=== PATIENT | female | born 1980 | race Caucasian/White ===

== ENCOUNTER 2020-07-09 14:32 | Emergency (ER) | payer OTHER, SELFPAY ==
--- NOTE | 2020-07-09 14:39 | HMH.EDGENADL ---
ED Disposition Clinical Impression: Vaginal bleeding, Dysfunctional uterine bleeding, Uterine mass Disposition: Home, Self-Care Condition on Discharge: Fair Additional Instructions: Take control medication as prescribed to decrease bleeding. He will take 2 pills/day for the next 3 days then take them 1 pill a day until they are finished. You can follow-up with Dr. Mackenzie. If you have any new, changing, worsening, or concerning symptoms, come back to the emergency department. Prescriptions: norgestimate-ethinyl estradioL [Sprintec 28 Day Tablet] 1 each PO DAILY 28 Days #28 tab Prescription Printed Referrals: Dawood Ames MD [Primary Care Provider] - Jai Martinez MD [Staff Physician] - Time of Disposition: 19:18 - Critical Care Critical Care Time: No Attestation: On , the high probability of a clinically significant, sudden or life threatening deterioration of the following system(s) required my full and direct attention, intervention and personal management. The time I documented below is in addition to time spent performing reported procedures but includes the following listed in this critical care notation. Medical Decision Making - Medical Records Medical records reviewed: Yes: I reviewed the patient's medical records. MR Comment: 39-year-old female presents the emergency department with heavy vaginal bleeding since around noon today. She is hemodynamically stable, with reassuring vital signs, and overall looks well on exam. She does not appear infected. Given her history will get labs including , CT and reassess. CT of the abdomen pelvis shows a large mass in the uterus with what is likely blood, could be fibroid/neoplasm. Ultrasound obtained which also shows some free fluid and cysts around her left ovary. Given this and her anemia with hemoglobin 9.6, spoke with Dr. Mackenzie so that we can arrange quicker follow-up for her. Her bleeding is slowed down a lot since arrival here, and she is soaking through less than 1 pad an hour. We will place her on control and she will follow-up for further evaluation. She was also given strict return precautions. She verbalized understanding of this and agreed to the plan. Safe to discharge. - Rito Inquiry Pt receiving controlled substance: No Vital Signs: 07/09/20 14:50 07/09/20 15:24 07/09/20 16:49 Temperature 98.2 F Temperature Source Oral Pulse Rate [Right Radial] 85 100 H 85 Respiratory Rate 17 15 20 Blood Pressure [Right Arm] 128/76 120/42 L 105/45 L Blood Pressure Mean [Right Arm] 93 68 65 Blood Pressure Source [Right Arm] Automatic Cuff Blood Pressure Position [Right Arm] Sitting 02 Sat by Pulse Oximetry 100 99 100 Oxygen Delivery Method Room Air - Lab Data Lab Results 07/09/20 15:00: WBC 10.7, RBC 3.23 L, Hgb 9.6 L, Hct 29.0 L, MCV 89.7, MCH 29.7, MCHC 33.1, RDW 14.3, Plt Count 500 H, MPV 8.0, Neut % (Auto) 62.9, Lymph % (Auto) 30.5, [place] % (Auto) 5.4, Eos % (Auto) 0.6, Baso % (Auto) 0.6, Neut # (Auto) 6.8, Lymph # (Auto) 3.3, [place] # (Auto) 0.6, Eos # (Auto) 0.1, Baso # (Auto) 0.1 07/09/20 15:00: Sodium 137, Potassium 3.5, Chloride 104, Carbon Dioxide 26, Anion Gap 10.5, BUN 9, Creatinine 0.70, Estimated Creat Clear 125, Estimated GFR 92, Est GFR ( Amer) 112, Glucose 201 H, Calcium 9.4, Total Bilirubin 0.3, AST 36, ALT 30, Alkaline Phosphatase 90, Total Protein 7.1, Albumin 4.3, Globulin 2.8, Albumin/Globulin Ratio 1.5, HCG, Quant < 2 07/09/20 15:00: Lactate 1.9 07/09/20 15:00: Blood Type O Negative, Antibody Screen Negative 07/09/20 15:21: POC Glucose 197 H 07/09/20 16:10: Urine Color [place], Urine Appearance Cloudy, Urine pH 6.0, Ur Specific [place] 1.020, Urine Protein Trace, Urine Glucose (UA) Negative, Urine Ketones Trace, Urine Blood 3+, Urine Nitrate Negative, Urine Bilirubin Negative, Urine Urobilinogen 0.2, Ur Leukocyte Esterase Negative, Urine RBC 20-50, Urine WBC 5-10, Ur Squamous Epith Cells 3-5, Urine Bacteri
[2020-07-09 14:50] VITALS: BP 128/76; PULSE 85; RESP 17; TEMP 36.8; O2SAT 100; BMI 32.2
--- NOTE | 2020-07-09 14:53 | CT_ITS ---
PROCEDURE: CT ABDOMEN PELVIS W CON CLINICAL INDICATION: vaginal bleeding and pain Abdominal pain with heavy vaginal bleeding COMPARISON: US US TRANSVAGINAL from 07/09/2020 TECHNIQUE: IV Contrast: 75ML OPTIRAY 350 Oral Contrast None Axial images obtained with sagittal and coronal reformats. All CT scans at the facility use one or more dose reduction, viz: automated exposure control, ma/kV adjustment per patient size (including targeted exams where dose is matched to indication, i.e. head), or iterative reconstruction technique. FINDINGS: LOWER THORAX: Minimal atelectatic or fibrotic changes are present in the right middle lobe ABDOMEN & PELVIS: The liver, spleen, adrenal glands, pancreas have an unremarkable appearance. There is a 4 mm nonobstructing stone in the mid polar region of the right kidney. See there is a 1 cm left renal cyst. No ureteral calculi or hydronephrosis. Unremarkable appendix. No intestinal obstruction or free air. There is a trace amount of free fluid in the pelvis. The uterus is retroverted and enlarged with heterogeneous attenuation. There is a 4 by 3.8 cm area of heterogeneous attenuation within the central aspect of the uterus inferiorly which appears to be eccentric to the left superiorly indenting the endometrial cavity toward the right.. This could represent a fibroid or endometrial carcinoma. Heterogeneous density in the endometrial canal and cervix area possibly due to blood. There is a small amount of fluid in the cul-de-sac. No acute bony findings. There is mild lumbar scoliosis convex left. IMPRESSION: 4 x 3.8 cm heterogeneous uterine mass deforming the endometrial canal and could represent a uterine leiomyoma or other neoplasm.. Heterogeneous attenuation noted in the endometrial canal and cervix area and could be due to blood Right nephrolithiasis Dictated by: Jonathan Villa MD 07/09/2020 20:47 Jonathan Villa MD in [facility] 07/09/2020 20:47
--- NOTE | 2020-07-09 15:15 | INFXCTL.NOTE ---
lab at bedside drawing blood for type and screen and patient became unresponsive suddenly during draw. nurse and emt-p enter room and with some stimulation and trendelenburg position patient arouses. ns bolus initiated. pt becomes alert with stable vs and is conversing appropriately. dr lambert at bedside for eval.
[2020-07-09 15:20] LABS: Basophils # 0.1 K/mm3 (0-0.2); Basophils % 0.6 % (0.1-2.0); Eosinophils # 0.1 K/mm3 (0.0-0.4); Eosinophils % 0.6 % (0.1-12.0); Hemoglobin 9.6 g/dL (12.2-16.2); Lymphocytes # 3.3 K/mm3 (0.7-4.5); Lymphocytes % 30.5 % (10-50); Mean Corpuscular HGB Conc 33.1 g/dL (31.8-35.4); Mean Corpuscular Hemoglobin 29.7 pg (27.0-31.2); Mean Corpuscular Volume 89.7 fl (81-99); Monocytes # 0.6 K/mm3 (0.1-1.0); Monocytes % 5.4 % (1.7-9.3); Neutrophils # 6.8 K/mm3 (1.8-7.8); Neutrophils % 62.9 % (37.0-80.0); Platelet Count 500 K/mm3 (142-424); Red Blood Count 3.23 M/mm3 (4.20-5.40); Red Cell Distribution Width 14.3 % (11.5-17.5); White Blood Count 10.7 K/mm3 (4.8-10.8)
[2020-07-09 15:24] VITALS: BP 120/42; PULSE 100; RESP 15; O2SAT 99
[2020-07-09 15:28] LABS: Lactic Acid 1.9 mmol/L (0.7-2.1)
[2020-07-09 15:29] LABS: POC Glucose,Bedside 197 (70-110)
[2020-07-09 15:30] LABS: Alanine Aminotransferase 30 U/L (12-78); Albumin Level 4.3 g/dl (3.5-5.0); Albumin/Globulin Ratio 1.5 (1.1-1.8); Alkaline Phosphatase 90 U/L (38-126); Anion Gap 10.5 mEq/L (5-15); Aspartate Amino Transferase 36 U/L (14-36); Bilirubin,Total 0.3 mg/dl (0.2-1.3); Blood Urea Nitrogen 9 mg/dl (7-17); Calcium 9.4 mg/dl (8.4-10.2); Carbon Dioxide 26 mmol/L (22.0-30.0); Chloride 104 mmol/L (98-107); Creatinine Clearance Estimated 125 mL/min (50-200); Estimated Glomerular Filt Rate 92 ml/min (>60); GFR (African American) 112 ML/MIN (>60); Globulin 2.8 g/dL (1.3-3.2); Glucose 201 mg/dl (74-100); Potassium 3.5 mmoL/L (3.5-5.1); Sodium 137 mmol/L (136-145); Total Protein,Serum 7.1 g/dl (6.3-8.2)
[2020-07-09 15:49] LABS: HCG,Quantitative < 2 mIU/ml (0-5.42)
[2020-07-09 16:40] LABS: Microscopic, Urine URINE MICROSCOPIC (MICROSCOPIC)
[2020-07-09 16:49] VITALS: BP 105/45; PULSE 85; RESP 20; O2SAT 100
[2020-07-09 17:07] LABS: Appearance,Urine CLOUDY (Clear); Bilirubin,Urine Negative (Negative); Blood, Urine 3+ (Negative); Color,Urine ORANGE (Yellow); Glucose,Urine (UA) Negative (Negative); Ketones,Urine TRACE (Negative); Leukocyte Esterase,Urine Negative (Negative); Nitrate,Urine Negative (Negative); Protein,Urine TRACE (Negative); Urobilinogen,Urine 0.2 EU/dl (0.2)
[2020-07-09 17:23] LABS: Bacteria,Urine Trace /lpf; Fine Granular Casts,Urine Occasional #/lpf (0); RBC,Urine 20-50 #/hpf (0-3)
--- NOTE | 2020-07-09 17:40 | US_ITS ---
PROCEDURE: US TRANSVAGINAL CLINICAL INDICATION: severe vaginal bleeding, mass in uterus on CT COMPARISON: CT CT ABDOMEN PELVIS W CON from 07/09/2020 FINDINGS: Uterus measures 8 x 5 x 5 cm. The uterus is retroverted. There is a heterogeneous mass in the region of the fundus of the uterus measuring 4 x 3.6 cm and could represent a fibroid or neoplasm. The endometrium is displaced dorsally measuring 9 mm. Left ovary is 3 x 3.5 cm containing 2 small follicles with blood flow noted. The right ovary is 1.7 x 1.3 cm with blood flow present. Fluid is present in the cul-de-sac. The fluid shows some increase in echogenicity on the images submitted and could represent underlying debris or blood. IMPRESSION: Heterogeneous uterine mass which could represent fibroid or uterine carcinoma. Fluid is present in the cul-de-sac with some increase in echogenicity possibly due to blood or debris Dictated by: Jonathan Villa MD 07/09/2020 20:56 Jonathan Villa MD in [facility] 07/09/2020 20:56
--- NOTE | 2020-07-09 17:42 | PC.NURSE ---
radiology notified of need for neon glass blower interventional tech. pt and updated on plan of care and both deny questions or needs. awaiting tech arrival.
[2020-07-09 19:38] VITALS: BP 110/60; PULSE 70; RESP 16; TEMP 36.8; O2SAT 98
== END 2020-07-09 19:39 | disposition home or self-care (01) ==
PROVIDERS: Emergency Provider Emergency Medicine; PCP Family Medicine
DX: N93.8 Other specified abnormal uterine and vaginal bleeding (principal); N85.8 Other specified noninflammatory disorders of uterus
CPT/HCPCS: 74177; 76830; 80053; 81001; 82962; 83605; 84702; 85025; 86850; 96365; 96366; 99284; Q9967

== ENCOUNTER → 2020-07-18 10:45 | Outpatient (CLI) | payer OTHER, SELFPAY ==
--- NOTE | 2020-07-18 10:45 | MM_ITS ---
PROCEDURE: MM DIG SCREENING MAMM BI W/CAD Digital Breast Tomosynthesis Included CLINICAL INDICATION: Baseline xmg There is no personal or family history of breast cancer. The patient is on control pills. COMPARISON: This is a baseline screening exam, patient without complaints TECHNIQUE: Standard CC and MLO images and 3D Tomosynthesis was obtained. R2 CAD reviewed. FINDINGS: Prominent diffuse somewhat heterogenic fibroglandular densities are seen throughout both breasts. Landon images are most helpful in this type of dense breast parenchyma. The findings of bilateral and symmetrical. There is no suspicious lesion in either breast and no suspicious microcalcifications. IMPRESSION: Moderately and diffusely dense parenchymal pattern with no suspicious lesions seen BI-RAD Category: 1 Negative FOLLOW-UP: 1YR 1 Year Follow-up (A letter has been sent to the patient regarding results of the study.) Dictated by: Dr. Bharat Copeland MD 07/20/2020 11:00 Dr. Bharat Copeland MD in [facility] 07/20/2020 11:00
== END ==
PROVIDERS: PCP Family Medicine; Visit Provider Nurse Practitioner Obstetrics & Gynecology
DX: Z12.31 Encounter for screening mammogram for malignant neoplasm of breast (principal)
CPT/HCPCS: 77063; 77067

== ENCOUNTER 2020-11-19 06:18 | Emergency (ER) | payer OTHER, SELFPAY ==
[2020-11-19] VITALS (9 sets, daily range): BP systolic 122–159; BP diastolic 64–96; PULSE 91–137; RESP 16–18; TEMP 36.6; O2SAT 100; BMI 32.5
[2020-11-19 06:54] LABS: Microscopic, Urine URINE MICROSCOPIC (MICROSCOPIC)
--- NOTE | 2020-11-19 06:58 | ECG_ITS ---
APPROVED REPORT Exam: Resting ECG HR:87 bpm ECG Measurements Heart Rate 87 AXES LA 118 P 67 QRSd 70 QRS 61 QT 366 T 33 QTc 440 Conclusion Normal sinus rhythm Normal ECG Electronically signed by : Dawood Law, 11/21/2020 06:56:48
[2020-11-19 06:59] LABS: Appearance,Urine CLOUDY (Clear); Blood, Urine 3+ (Negative); Color,Urine DK YELLOW (Yellow); Glucose,Urine (UA) Negative (Negative); Ketones,Urine 2+ (Negative); Leukocyte Esterase,Urine Negative (Negative); Nitrate,Urine Negative (Negative); Protein,Urine 1+ (Negative); Specific Gravity, Urine >= 1.030 (1.005-1.030); Urobilinogen,Urine 0.2 EU/dl (0.2)
[2020-11-19 07:10] LABS: Urine Pregnancy, HCG Qual. Negative (Negative)
[2020-11-19 07:11] LABS: Chloride 107 mmol/L (98-107); Sodium 138 mmol/L (136-145)
[2020-11-19 07:12] LABS: Potassium 4.4 mmoL/L (3.5-5.1)
[2020-11-19 07:14] LABS: Alanine Aminotransferase 40 U/L (12-78); Albumin Level 4.5 g/dl (3.5-5.0); Albumin/Globulin Ratio 1.3 (1.1-1.8); Alkaline Phosphatase 61 U/L (38-126); Anion Gap 13.4 mEq/L (5-15); Aspartate Amino Transferase 52 U/L (14-36); Bilirubin,Total 0.6 mg/dl (0.2-1.3); Blood Urea Nitrogen 15 mg/dl (7-17); Calcium 9.1 mg/dl (8.4-10.2); Carbon Dioxide 22 mmol/L (22.0-30.0); Creatinine Clearance Estimated 125 mL/min (50-200); Estimated Glomerular Filt Rate 92 ml/min (>60); GFR (African American) 111 ML/MIN (>60); Globulin 3.5 g/dL (1.3-3.2); Glucose 162 mg/dl (74-100)
[2020-11-19 07:15] LABS: Bilirubin,Urine Negative (Negative)
--- NOTE | 2020-11-19 07:15 | PC.NURSE ---
Pt to rad.
[2020-11-19 07:20] LABS: C-Reactive Protein 19.6 mg/L (0-4)
--- NOTE | 2020-11-19 07:27 | HMH.EDUROGF ---
ED Disposition Clinical Impression: Dysfunctional uterine bleeding Disposition: Home, Self-Care Condition on Discharge: Good Instructions: DI for Vaginal Bleeding Additional Instructions: resume meds and follow up with hand almond blancher Referrals: Dawood Ames MD [Primary Care Provider] - Jai Martinez MD [Staff Physician] - - Critical Care Critical Care Time: No Attestation: On 11/19/20, the high probability of a clinically significant, sudden or life threatening deterioration of the following system(s) required my full and direct attention, intervention and personal management. The time I documented below is in addition to time spent performing reported procedures but includes the following listed in this critical care notation. Medical Decision Making - Medical Records Medical records reviewed: Yes: I reviewed the patient's medical records. - Rito Inquiry Pt receiving controlled substance: No Vital Signs: 11/19/20 06:20 11/19/20 07:03 11/19/20 07:04 Temperature 97.9 F Temperature Source Oral Pulse Rate [Right] 137 H Respiratory Rate 16 Blood Pressure [Orthostatic Lying Right Arm] 130/68 130/68 Blood Pressure [Orthostatic Sitting Right Arm] 134/81 Blood Pressure [Orthostatic Standing Right Arm] 157/75 H Blood Pressure [Right Arm] 159/96 H Blood Pressure Mean [Right Arm] 117 Blood Pressure Source [Right Arm] Blood Pressure Position [Right Arm] 02 Sat by Pulse Oximetry 100 Oxygen Delivery Method 11/19/20 07:05 11/19/20 07:46 11/19/20 08:16 Temperature Temperature Source Pulse Rate [Right] 96 H 107 H 91 H Respiratory Rate 18 Blood Pressure [Orthostatic Lying Right Arm] Blood Pressure [Orthostatic Sitting Right Arm] Blood Pressure [Orthostatic Standing Right Arm] Blood Pressure [Right Arm] 157/75 H 128/79 123/64 Blood Pressure Mean [Right Arm] 102 95 83 Blood Pressure Source [Right Arm] Automatic Cuff Automatic Cuff Automatic Cuff Blood Pressure Position [Right Arm] Sitting Sitting Sitting 02 Sat by Pulse Oximetry 100 100 100 Oxygen Delivery Method Room Air Room Air Room Air 11/19/20 08:58 Temperature Temperature Source Pulse Rate [Right] 96 H Respiratory Rate Blood Pressure [Orthostatic Lying Right Arm] Blood Pressure [Orthostatic Sitting Right Arm] Blood Pressure [Orthostatic Standing Right Arm] Blood Pressure [Right Arm] 127/69 Blood Pressure Mean [Right Arm] 88 Blood Pressure Source [Right Arm] Automatic Cuff Blood Pressure Position [Right Arm] Sitting 02 Sat by Pulse Oximetry 100 Oxygen Delivery Method Room Air - Lab Data Lab results reviewed: Yes: I reviewed the patient's lab results. Lab Results 11/19/20 06:30: Urine Color Dk yellow, Urine Appearance Cloudy, Urine pH 6.0, Ur Specific [place] >= 1.030, Urine Protein 1+, Urine Glucose (UA) Negative, Urine Ketones 2+, Urine Blood 3+, Urine Nitrate Negative, Urine Bilirubin Negative, Urine Urobilinogen 0.2, Ur Leukocyte Esterase Negative, Urine RBC 10-20, Urine WBC 5-10, Ur Squamous Epith Cells Occasional, Urine Bacteria Trace 11/19/20 06:45: WBC 14.7 H, RBC 4.28, Hgb 11.3 L, Hct 35.2 L, MCV 82.3, MCH 26.4 L, MCHC 32.1, RDW 15.8, Plt Count 448 H, MPV 8.5, Neut % (Auto) 78.7, Lymph % (Auto) 15.9, [place] % (Auto) 4.6, Eos % (Auto) 0.3, Baso % (Auto) 0.6, Neut # (Auto) 11.6 H, Lymph # (Auto) 2.3, [place] # (Auto) 0.7, Eos # (Auto) 0.0, Baso # (Auto) 0.1, ESR 24 H 11/19/20 06:45: Urine HCG, Qual Negative 11/19/20 06:45: C-Reactive Protein 19.6 H, Procalcitonin < 0.030 11/19/20 06:45: Sodium 138, Potassium 4.4, Chloride 107, Carbon Dioxide 22, Anion Gap 13.4, BUN 15, Creatinine 0.70, Estimated Creat Clear 125, Estimated GFR 92, Est GFR ( Amer) 111, Glucose 162 H, Calcium 9.1, Total Bilirubin 0.6, AST 52 H, ALT 40, Alkaline Phosphatase 61, Troponin I < 0.01, Total Protein 8.0, Albumin 4.5, Globulin 3.5 H, Albumin/Globulin Ratio 1.3 Result diagrams: 11/19/20 06:45 11/19/20 06:45 Orders (Tests/Meds
[2020-11-19 07:31] LABS: Troponin I < 0.01 ng/ml (0.00-0.034)
[2020-11-19 07:32] LABS: Bacteria,Urine Trace /lpf; Squamous Epithelial Cell,Urine Occasional #/hpf (0-5)
[2020-11-19 07:34] LABS: Basophils # 0.1 K/mm3 (0-0.2); Basophils % 0.6 % (0.1-2.0); Eosinophils % 0.3 % (0.1-12.0); Hematocrit 35.2 % (37.0-47.0); Hemoglobin 11.3 g/dL (12.2-16.2); Lymphocytes # 2.3 K/mm3 (0.7-4.5); Lymphocytes % 15.9 % (10-50); Mean Corpuscular HGB Conc 32.1 g/dL (31.8-35.4); Mean Corpuscular Hemoglobin 26.4 pg (27.0-31.2); Mean Corpuscular Volume 82.3 fl (81-99); Mean Platelet Volume 8.5 fl (7.4-10.4); Monocytes # 0.7 K/mm3 (0.1-1.0); Monocytes % 4.6 % (1.7-9.3); Neutrophils # 11.6 K/mm3 (1.8-7.8); Neutrophils % 78.7 % (37.0-80.0); Platelet Count 448 K/mm3 (142-424); Red Blood Count 4.28 M/mm3 (4.20-5.40); Red Cell Distribution Width 15.8 % (11.5-17.5); White Blood Count 14.7 K/mm3 (4.8-10.8)
--- NOTE | 2020-11-19 07:36 | PC.NURSE ---
minilab operator paging nurse quality engagement liaison (Dr. Olvera)
--- NOTE | 2020-11-19 07:39 | PC.NURSE ---
SALO NUNEZ speaking with Dr. Olvera
[2020-11-19 08:04] LABS: Erythrocyte Sedimentation Rate 24 mm/hr (0-20)
[2020-11-19 08:23] LABS: Procalcitonin < 0.030 ng/mL (0.0-2.0)
== END 2020-11-19 09:55 | disposition home or self-care (01) ==
PROVIDERS: Emergency Provider Emergency Medicine; PCP Family Medicine
DX: N93.8 Other specified abnormal uterine and vaginal bleeding (principal)
CPT/HCPCS: 80053; 81001; 81025; 84145; 84484; 85025; 85651; 86140; 93005; 96365; 99284

== ENCOUNTER → 2020-12-06 10:59 | Outpatient (CLI) | payer OTHER, SELFPAY ==
[2020-12-06 11:40] LABS: Basophils % 0.5 % (0.1-2.0); Eosinophils # 0.1 K/mm3 (0.0-0.4); Eosinophils % 0.6 % (0.1-12.0); Hematocrit 35.4 % (37.0-47.0); Hemoglobin 10.8 g/dL (12.2-16.2); Lymphocytes # 1.6 K/mm3 (0.7-4.5); Lymphocytes % 18.8 % (10-50); Mean Corpuscular HGB Conc 30.5 g/dL (31.8-35.4); Mean Corpuscular Hemoglobin 26.6 pg (27.0-31.2); Mean Corpuscular Volume 87.1 fl (81-99); Mean Platelet Volume 7.9 fl (7.4-10.4); Monocytes # 0.4 K/mm3 (0.1-1.0); Monocytes % 4.4 % (1.7-9.3); Neutrophils # 6.4 K/mm3 (1.8-7.8); Neutrophils % 75.7 % (37.0-80.0); Platelet Count 512 K/mm3 (142-424); Red Blood Count 4.06 M/mm3 (4.20-5.40); Red Cell Distribution Width 17.6 % (11.5-17.5); White Blood Count 8.5 K/mm3 (4.8-10.8)
[2020-12-06 12:05] LABS: Chloride 109 mmol/L (98-107); Potassium 4.6 mmoL/L (3.5-5.1); Sodium 141 mmol/L (136-145)
[2020-12-06 12:08] LABS: Anion Gap 13.6 mEq/L (5-15); Blood Urea Nitrogen 10 mg/dl (7-17); Calcium 9.6 mg/dl (8.4-10.2); Carbon Dioxide 23 mmol/L (22.0-30.0); Estimated Glomerular Filt Rate 92 ml/min (>60); GFR (African American) 111 ML/MIN (>60); Glucose 114 mg/dl (74-100); HCG Qualitative, Serum Negative (Negative)
== END ==
PROVIDERS: PCP Family Medicine; Visit Provider Nurse Practitioner Obstetrics & Gynecology
DX: Z01.818 Encounter for other preprocedural examination (principal); Z20.822 Contact with and (suspected) exposure to COVID-19; R10.2 Pelvic and perineal pain; D25.9 Leiomyoma of uterus, unspecified; N92.0 Excessive and frequent menstruation with regular cycle
CPT/HCPCS: 36415; 80048; 84703; 85025; U0003

== ENCOUNTER 2020-12-08 06:17 | Observation (INO) | payer OTHER, SELFPAY ==
[2020-12-01 09:32] VITALS: BMI 32.2
[2020-12-08] VITALS (24 sets, daily range): BP systolic 98–142; BP diastolic 51–78; PULSE 52–103; RESP 14–18; TEMP 36.4–38; O2SAT 93–100; BMI 32.3
--- NOTE | 2020-12-08 06:55 | HMH.ANESCL ---
[facility] Anesthesia Checklist - Structural Data Admitted From: Home Planned Operative Procedure/s: [facility] Consent for Planned Operative Procedure(s) Verified: Yes - Additional verifications Anesthesia Reactions: No Hx Blood Transfusions: No Blood Transfusion Reaction: No - Airway Assessment C-Spine Mobility Assessed: Yes TMJ Mobility Assessed: Yes Dentition: Good Dentition - Neurological Assessment Level of Consciousness: Awake, Alert, Appropriate - Anesthesia Plan Anesthesia Risk discussed: Yes Anesthesia Plan: Verified ASA Class: II Anesthesia Type: General [facility] History I have reviewed the patient's past medical history: Yes Medical History: Denies:: Cancer, Diabetes Mellitus Type 1, Diabetes Mellitus Type 2, Internal Pacemaker, MRSA, Seizures *Have you ever received a pneumonia vaccine?: No *Have you received a flu vaccine this season?: No Other Medical History: Denies: Blood Transfusion Reaction Anesthesia experience/problems:: none Other Surgeries: Yes: No Previous Surgery. No: Pacemaker Amputation: No Fractures: No - *Social History Last grade of school completed: High school graduate Smoking Status: Never smoker Alcohol Intake: current Alcohol Intake Frequency:: holidays/special occasions only Substance Use Type: denies use *Occupational Status:: employed Housing: house Household Members: spouse, family *Travel in the last 8 weeks: None Family Hx:: No significant family history
--- NOTE | 2020-12-08 09:42 | P.PN_ITS ---
[facility] Anesthesia Record Part I Intake, IV Amount: 2,000 Estimated blood loss (mL): 200 Urine output (mL): 200 Blood Pressure: 126/61 SaO2: 93 Pulse Rate: 103 Respiratory Rate: 18 Temperature: 97.6 F Patient is:: Drowsy Stable to PACU at:: 09:43
--- NOTE | 2020-12-08 09:43 | HMH.OPNOTE ---
Date of procedure: 12/08/20 Pre-op Diagnosis:: Menorrhagia, fibroid uterus, anemia Post-op Diagnosis:: Menorrhagia, fibroid uterus, anemia Procedure performed:: Laparoscopically assisted vaginal hysterectomy, bilateral salpingectomy Surgeon:: Jai Martinez MD Military Source Operations Officer(s):: Yane Constantino SURVEYING TECHNICIAN:: Gurjit Yao Anesthesia: GETA Estimated blood loss (mL): 200 Clinical Note:: She is a 40-year-old lady who had extremely heavy periods. She has had low blood counts. Ultrasound showed that she had a 4 cm fibroid. After having discussed the risks and benefits we elected to perform a laparoscopic-assisted vaginal hysterectomy and bilateral salpingectomy. Operative findings:: She had a bulky retroverted uterus with a large intramural fibroid. Tubes appeared normal. The distal end of the left tube was adherent to the posterior uterus. There was an adhesion from the right ovary to the posterior uterus as well. The deep pelvis appeared normal the rest the abdomen appeared normal. Operative note:: She was taken to the operating room where general anesthesia was found be adequate. She was prepped and draped in normal sterile fashion in the semilithotomy position. A weighted speculum was placed in the vagina and the anterior lip of the cervix was grasped with a tenaculum. An acorn uterine manipulator was then placed within the cervical os. I then changed gloves. I injected 10 cc of 0.5% ropivacaine around the umbilicus and made a small incision within the umbilicus. I inserted a Veress needle into the abdominal cavity. The abdominal cavity was then insufflated with carbon dioxide gas to a pressure of 20 mmHg. I then inserted an 11 mm trocar under direct vision. I injected through and through the pubic hairline, made a small incision here and inserted a 5 mm trocar under direct vision. I identified the inferior epigastric arteries on the left side, went lateral to these and injected through and through. I then made a small incision and inserted an 11 mm trocar under direct vision. A similar 11 mm trocar was placed on the right side. The left round ligament was then grasped and cut through with harmonic scalpel. This was followed by opening up the peritoneum anteriorly to the midline. I then grasped the tube on the left side and cut through this. There was a thick adhesion from the distal end of the left tube to the posterior left side of the uterus. This was taken down with harmonic scalpel. This is followed by cutting through the left utero-ovarian ligament. I used Harmonic scalpel on the coagulation mode. I then took down the posterior aspect of the broad ligament to the level of the uterosacral ligament. I then skeletonized the uterine arteries on the left side and placed hemoclips on these. Using the harmonic scalpel on coagulation mode adjacent to the cervix I then took down these uterine arteries. I then further freed up the bladder anteriorly and laterally on the left side with harmonic scalpel. I then turned my attention to the right side where I grasped the right round ligament. I then used harmonic scalpel to cut through the right round ligament. I then took down the anterior peritoneum to the midline joining up with the other side. I further dissected the bladder off. The posterior aspect of the right broad ligament was then taken down with harmonic scalpel. I skeletonized the uterine arteries on the right side. I applied hemoclips to the uterine arteries and staying adjacent to the cervix on the right side I took down the uterine arteries with harmonic scalpel on coagulation mode. I further freed up the bladder. We then assured hemostasis. I then grasped the distal end of the right tube and using harmonic scalpel I cut along the mesosalpinx. The tube was removed through the 11 mm trocar site. This was only performed on the patient's left side. After once again assuring hemostasis we then turned our attention to the
[2020-12-08 09:51] LABS: Microscopic,Cath URINE MICROSCOPIC (MICROSCOPIC)
[2020-12-08 09:52] LABS: Appearance,Urine/Cath CLEAR (Clear); Bilirubin,Cath Negative (Negative); Blood, Urine/Cath 1+ (Negative); Color,Urine/Cath YELLOW (Yellow); Glucose,Urine/Cath (UA) Negative (Negative); Ketones,Urine/Cath TRACE (Negative); Leukocyte Esterase,Cath Negative (Negative); Nitrate,Cath Negative (Negative); Protein,Urine/Cath 1+ (Negative); Specific Gravity, Urine/Cath >= 1.030 (1.005-1.030); Urobilinogen,Cath 0.2 EU/dl (0.2)
--- NOTE | 2020-12-08 10:15 | PC.NURSE ---
Report from Fe BOWSER.
--- NOTE | 2020-12-08 10:21 | P.CONPHA_ITS ---
[facility] Pharmacy VTE Monitoring - Patient Demographics Admission date: 12/08/20 Report Date: 12/08/20 Time: 10:21 Allergies/Adverse Reactions: Patient Allergies No Known Allergies Allergy (Verified 11/22/20 08:11) Height: 1.52 m Weight: 74.843 kg - VTE Risk Clinical Trial Participant: No - Prophylaxis VTE Prophylaxis Ordered?: Yes Types of VTE Prophylaxis: TEDS Knee High
--- NOTE | 2020-12-08 10:30 | PC.NURSE ---
Pt. arrived to room 275 via bed with PACU Staff x2 and spouse.
[2020-12-08 11:35] LABS: Squamous Epithelial Ur./Cath Occasional #/hpf (0-5)
--- NOTE | 2020-12-08 14:55 | HMH.ANESII ---
[facility] Anesthesia Record Part II Discharge Time: 10:17 Destination: Obstetric PACU nurse assessment reviewed?: Yes Patient Condition:: Good Anesthesia Complications:: None Swallowing reflex intact?: Yes Cyanosis?: No Blood Pressure: 115/63 Pulse Rate: 82 Temperature: 98.6 F Mental Status: Alert & Oriented Pain level:: 2 Nausea and/or vomitting:: None Intake, IV Amount: 0
[2020-12-08 16:29] LABS: Hematocrit 31.6 % (37.0-47.0); Hemoglobin 9.4 g/dL (12.2-16.2)
--- NOTE | 2020-12-08 17:24 | PC.NURSE ---
Pt. up to bathroom and back to bed with standby assist. Pt. tolerated well, denies needs, will continue to monitor.
--- NOTE | 2020-12-08 17:45 | PC.NURSE ---
Dr. Martinez in room
--- NOTE | 2020-12-08 23:35 | PC.NURSE ---
UPON ENTERING ROOM PT WAS SOUND ASLEEP, AROUSED WITH TOUCH AND CALLING HER BY NAME,ANCEF HUNG AT THIS TIME AND V/S OBTAINED,AFEBRILE ASSISTED PT WITH UNPLUGING IV POLE SO SHE COULD GO TO BATHROOM WHERE SHE VOIDED 200ML OF YELLOW URINE,REPORTS SCANT VAG.BLEEDING PINKISH IN COLOR,DENIES ANY PAIN AT THIS TIME.
[2020-12-09 04:15] VITALS: BP 114/59; PULSE 64; RESP 16; TEMP 36.7; O2SAT 100
--- NOTE | 2020-12-09 04:37 | PC.NURSE ---
NO ACUTE CHANGES FROM PREVIOUS ASSESSMENT,LUNGS CLEAR,RESP.EVEN AND UNLABORED,V/S STABLE,4 LAP SITE REMAIN THE SAME,BOTTOM ONE WITH SEROUS DRAINAGE,ACTIVE BOWEL SOUNDS X4 QUADS,PT REPORTS PASSING ONLY A LITTLE GAS ,DENIES ANY NAUSEA OR VOMITING.VOIDING WITHOUT DIFF.
[2020-12-09 07:38] LABS: Basophils % 0.2 % (0.1-2.0); Eosinophils % 0.1 % (0.1-12.0); Hematocrit 30.7 % (37.0-47.0); Hemoglobin 9.2 g/dL (12.2-16.2); Lymphocytes # 2.6 K/mm3 (0.7-4.5); Lymphocytes % 18.3 % (10-50); Mean Corpuscular HGB Conc 29.9 g/dL (31.8-35.4); Mean Corpuscular Hemoglobin 27.1 pg (27.0-31.2); Mean Corpuscular Volume 90.7 fl (81-99); Monocytes # 0.9 K/mm3 (0.1-1.0); Monocytes % 6.5 % (1.7-9.3); Neutrophils # 10.5 K/mm3 (1.8-7.8); Platelet Count 376 K/mm3 (142-424); Red Blood Count 3.39 M/mm3 (4.20-5.40); Red Cell Distribution Width 17.7 % (11.5-17.5)
[2020-12-09 07:39] LABS: Chloride 110 mmol/L (98-107); Potassium 3.9 mmoL/L (3.5-5.1); Sodium 139 mmol/L (136-145)
[2020-12-09 07:42] LABS: Anion Gap 7.9 mEq/L (5-15); Blood Urea Nitrogen 6 mg/dl (7-17); Carbon Dioxide 25 mmol/L (22.0-30.0); Creatinine Clearance Estimated 124 mL/min (50-200); Estimated Glomerular Filt Rate 92 ml/min (>60); GFR (African American) 111 ML/MIN (>60); Glucose 106 mg/dl (74-100)
[2020-12-09 07:59] LABS: Calcium 8.4 mg/dl (8.4-10.2)
[2020-12-09 08:00] VITALS: O2SAT 100
--- NOTE | 2020-12-09 08:53 | HMH.DCSUM ---
General - General Admission date:: 12/08/20 Discharge date: 12/09/20 HPI HPI: She is a 40-year-old lady who has extremely heavy periods. She has had anemia as result of this. She had an ultrasound that showed a 4 cm fibroid. After having discussed the risk and benefits she elected to have a laparoscopically assisted vaginal hysterectomy and bilateral salpingectomy. Hospital Course Hospital Course: On December 08, 2020 she underwent a laparoscopically assisted vaginal hysterectomy and bilateral salpingectomy. She has done well postoperatively and has remained afebrile throughout hospitalization. She is eating and drinking and ambulating. Her pain is well controlled. She will be discharged home to follow-up with me in approximately 2 weeks time. She was given a prescription for Percocet 5/325 number 20 tablets. She will continue with a women's One-A-Day vitamin with iron. She will continue with iron tablets. She was given the usual instructions with respect to limiting her activity, driving and sexual activity. Her condition on discharge is stable and improved. Objective Vital signs: Temp Pulse Resp BP Pulse Ox 98.0 F 64 16 114/59 L 100 12/09/20 04:15 12/09/20 04:15 12/09/20 04:15 12/09/20 04:15 12/09/20 04:15 no acute distress - *Routine HEENT Exam Head: Present: normocephalic Eye: Present: EOMI, PERRL ENT: Present: mucous membranes moist - *Routine Neck Exam Present: supple - *Routine Respiratory Exam Present: CTA bilaterally - *Routine Cardiovascular Exam Present: RRR - *Routine Abdominal Exam Present: soft, normoactive bowel sounds. Absent: tenderness Comments: Her incisions are clean and dry. Results Labs on day of discharge: Labs from last 24 hours 12/09/20 12/09/20 12/08/20 06:45 06:45 16:15 WBC 14.0 H D RBC 3.39 L Hgb 9.2 L 9.4 L Hct 30.7 L 31.6 L MCV 90.7 MCH 27.1 MCHC 29.9 L RDW 17.7 H Plt Count 376 D MPV 8.0 Neut % (Auto) 75.0 Lymph % (Auto) 18.3 [place] % (Auto) 6.5 Eos % (Auto) 0.1 Baso % (Auto) 0.2 Neut # (Auto) 10.5 H Lymph # (Auto) 2.6 [place] # (Auto) 0.9 Eos # (Auto) 0.0 Baso # (Auto) 0.0 Sodium 139 Potassium 3.9 Chloride 110 H Carbon Dioxide 25 Anion Gap 7.9 BUN 6 L D Creatinine 0.70 Estimated Creat Clear 124 Estimated GFR 92 Est GFR ( Amer) 111 Glucose 106 H Calcium 8.4 D Urine Color Urine Appearance Urine pH Ur Specific [place] Urine Protein Urine Glucose (UA) Urine Ketones Urine Blood Urine Nitrate Urine Bilirubin Urine Urobilinogen Ur Leukocyte Esterase Urine RBC Urine WBC Ur Squamous Epith Cells 12/08/20 09:02 WBC RBC Hgb Hct MCV MCH MCHC RDW Plt Count MPV Neut % (Auto) Lymph % (Auto) [place] % (Auto) Eos % (Auto) Baso % (Auto) Neut # (Auto) Lymph # (Auto) [place] # (Auto) Eos # (Auto) Baso # (Auto) Sodium Potassium Chloride Carbon Dioxide Anion Gap BUN Creatinine Estimated Creat Clear Estimated GFR Est GFR ( Amer) Glucose Calcium Urine Color Yellow Urine Appearance Clear Urine pH 6.0 Ur Specific [place] >= 1.030 Urine Protein 1+ Urine Glucose (UA) Negative Urine Ketones Trace Urine Blood 1+ Urine Nitrate Negative Urine Bilirubin Negative Urine Urobilinogen 0.2 Ur Leukocyte Esterase Negative Urine RBC 5-10 Urine WBC 3-5 Ur Squamous Epith Cells Occasional DS: Diagnosis - Discharge Diagnosis (1) Menorrhagia Status: Acute (2) Anemia Status: Acute (3) Fibroid uterus Status: Acute (4) Dysfunctional uterine bleeding Status: Acute (5) Uterine mass Status: Acute (6) Vaginal bleeding Status: Acute Discharge Plan - Patient Discharge Instructions ACTIVITY: No heavy lifting DIET: continue same diet Additional Instructions: *No heavy lifting,
--- NOTE | 2020-12-09 09:01 | HMH.HP ---
*Admission Date: 12/08/20 *History of present illness: She is a 40-year-old lady who has extremely heavy periods. She has had anemia as result of this. She had an ultrasound that showed a 4 cm fibroid. After having discussed the risk and benefits she elected to have a laparoscopically assisted vaginal hysterectomy and bilateral salpingectomy. [facility] History I have reviewed the patient's past medical history: Yes Medical History: Denies:: Cancer, Diabetes Mellitus Type 1, Diabetes Mellitus Type 2, Internal Pacemaker, MRSA, Seizures *Have you ever received a pneumonia vaccine?: No *Have you received a flu vaccine this season?: No Other Medical History: Denies: Blood Transfusion Reaction Anesthesia experience/problems:: none Other Surgeries: Yes: No Previous Surgery. No: Pacemaker Amputation: No Fractures: No - *Social History Last grade of school completed: High school graduate Smoking Status: Never smoker Alcohol Intake: current Alcohol Intake Frequency:: holidays/special occasions only Substance Use Type: denies use *Occupational Status:: employed Housing: house Household Members: spouse, family *Travel in the last 8 weeks: None Family Hx:: No significant family history Review of Systems - Review of Systems Review of systems:: pertinent systems reviewed and negative unless documented below Meds Home Medications Medication Instructions Recorded Confirmed Type multivitamin 1 cap PO DAILY 07/12/20 12/01/20 History norgestimate-ethinyl estradioL 1 tab PO DAILY 11/19/20 12/08/20 History [Previfem Tablet] Iron,Carb/Vit C/Vit B12/Folic 1 each PO DAILY 12/01/20 12/08/20 History [Iron 100 Plus Tablet] Ketorolac Tromethamine [Toradol 10 mg PO Q6H 5 Days #20 tab 12/09/20 Rx 10mg tablet] Oxycodone HCl/Acetaminophen 1 tab PO Q4-6H PRN #20 tab 12/09/20 Rx [Percocet 5/325mg tablet] Allergies Allergy/AdvReac Type Severity Reaction Status Date / Time No Known Allergies Allergy Verified 11/22/20 08:11 Exam Vital signs and Labs for Last 24 Hours: Temp Pulse Resp BP Pulse Ox 98.0 F 64 16 114/59 L 100 12/09/20 04:15 12/09/20 04:15 12/09/20 04:15 12/09/20 04:15 12/09/20 04:15 Laboratory Results - last 24 hr 12/08/20 09:02: Urine Color Yellow, Urine Appearance Clear, Urine pH 6.0, Ur Specific [place] >= 1.030, Urine Protein 1+, Urine Glucose (UA) Negative, Urine Ketones Trace, Urine Blood 1+, Urine Nitrate Negative, Urine Bilirubin Negative, Urine Urobilinogen 0.2, Ur Leukocyte Esterase Negative, Urine RBC 5-10, Urine WBC 3-5, Ur Squamous Epith Cells Occasional 12/08/20 16:15: Hgb 9.4 L, Hct 31.6 L 12/09/20 06:45: WBC 14.0 H D, RBC 3.39 L, Hgb 9.2 L, Hct 30.7 L, MCV 90.7, MCH 27.1, MCHC 29.9 L, RDW 17.7 H, Plt Count 376 D, MPV 8.0, Neut % (Auto) 75.0, Lymph % (Auto) 18.3, [place] % (Auto) 6.5, Eos % (Auto) 0.1, Baso % (Auto) 0.2, Neut # (Auto) 10.5 H, Lymph # (Auto) 2.6, [place] # (Auto) 0.9, Eos # (Auto) 0.0, Baso # (Auto) 0.0 12/09/20 06:45: Sodium 139, Potassium 3.9, Chloride 110 H, Carbon Dioxide 25, Anion Gap 7.9, BUN 6 L D, Creatinine 0.70, Estimated Creat Clear 124, Estimated GFR 92, Est GFR ( Amer) 111, Glucose 106 H, Calcium 8.4 D I & O for Last 24 hours: Intake & Output 12/06/20 12/07/20 12/08/20 12/09/20 11:59 11:59 11:59 11:59 Intake Total 2124 0 / 0 Output Total 100 / 100 1999 Balance 2024 -1999 Weight 165 lb 0.009 oz - Constitutional no acute distress - *Routine HEENT Exam Head: Present: normocephalic Eye: Present: EOMI, PERRL ENT: Present: mucous membranes moist - *Routine Neck Exam Present: supple, full ROM - *Routine Respiratory Exam Absent: accessory muscle use (good air entry bilaterally), wheezes, crackles - *Routine Cardiovascular Exam Present: RRR. Absent: murmur - *Routine Abdominal Exam Present: soft, normoactive bowel sounds. Absent: tenderness, rebound, guarding, mass - *Routine Rectal
--- NOTE | 2020-12-09 12:20 | PC.NURSE ---
Dressings removed from x4 telfa and tegaderm sites, bandaid in place. pt. tolerated well.
--- NOTE | 2020-12-09 12:27 | PC.NURSE ---
Discharge teaching provided. Questions encouraged and answered. Discharge paperwork signed by pt. and this nurse.
--- NOTE | 2020-12-09 12:53 | PC.NURSE ---
Pt. left unit ambulatory per her request. Accompanied by spouse and Staff x1.
== END 2020-12-09 12:55 | disposition home or self-care (01) ==
LOC: OB 08:46
PROVIDERS: Admitting Provider Nurse Practitioner Obstetrics & Gynecology; PCP Family Medicine; Visit Provider Nurse Practitioner Obstetrics & Gynecology
PROC: 0UT9FZZ Resection of Uterus, Via Natural or Artificial Opening With Percutaneous Endoscopic Assistance (ICD-10-PCS; CPT 58552; principal; 2020-12-08 07:30)
DX: D25.1 Intramural leiomyoma of uterus (principal); N92.0 Excessive and frequent menstruation with regular cycle; D64.9 Anemia, unspecified; N73.6 Female pelvic peritoneal adhesions (postinfective)
CPT/HCPCS: 58552; 36415; 80048; 81001; 85014; 85018; 85025; 94761; 96374; G0283; G0378; J2405

== ENCOUNTER → 2021-08-01 10:51 | Outpatient (CLI) | payer OTHER, SELFPAY ==
--- NOTE | 2021-08-01 10:52 | MM_ITS ---
PROCEDURE: MM DIG SCREENING MAMM BI W/CAD Digital Breast Tomosynthesis Included CLINICAL INDICATION: screening mammolgram There is no personal or family history of breast cancer. COMPARISON: MG MM DIG SCREENING MAMM BI W/CAD from 07/18/2020 TECHNIQUE: Standard CC and MLO images and 3D Tomosynthesis was obtained. R2 CAD reviewed. FINDINGS: Diff fibroglandular densities are seen throughout both breasts and the findings are bilateral and symmetrical except for stable minimal asymmetric glandular elements upper-outer quadrant right breast. There are no CAD markings. There is no suspicious lesion and no suspicious microcalcifications. IMPRESSION: Stable fibrofatty parenchyma with no suspicious lesions seen BI-RAD Category: 1 Negative FOLLOW-UP: 1YR 1 Year Follow-up (A letter has been sent to the patient regarding results of the study.) Dictated by: Dr. Bharat Copeland MD 08/08/2021 13:15 Dr. Bharat Copeland MD in [place] 08/08/2021 13:15
== END ==
PROVIDERS: PCP Family Medicine; Visit Provider Nurse Practitioner Obstetrics & Gynecology
DX: Z12.31 Encounter for screening mammogram for malignant neoplasm of breast (principal)
CPT/HCPCS: 77063; 77067

== ENCOUNTER 2023-10-21 15:31 | Outpatient (CLI) | payer OTHER, SELFPAY ==
[2023-10-21 14:36] LABS: Basophils # 0.1 K/mm3 (0-0.2); Basophils % 0.6 % (0.1-2.0); Eosinophils # 0.1 K/mm3 (0.0-0.4); Eosinophils % 0.7 % (0.1-12.0); Hematocrit 43.6 % (37.0-47.0); Hemoglobin 14.4 g/dL (12.2-16.2); Lymphocytes # 2.7 K/mm3 (0.7-4.5); Lymphocytes % 25.6 % (10-50); Mean Platelet Volume 8.3 fl (7.4-10.4); Monocytes # 0.5 K/mm3 (0.1-1.0); Platelet Count 326 K/mm3 (142-424); Red Blood Count 4.78 M/mm3 (4.20-5.40); Red Cell Distribution Width 13.5 % (11.5-17.5); White Blood Count 10.3 K/mm3 (4.8-10.8)
[2023-10-21 14:50] LABS: Chloride 103 mmol/L (98-107); Potassium 5.1 mmoL/L (3.5-5.1); Sodium 139 mmol/L (136-145)
[2023-10-21 14:53] LABS: Alanine Aminotransferase 25 U/L (12-78); Albumin Level 4.7 g/dl (3.5-5.0); Albumin/Globulin Ratio 1.7 (1.1-1.8); Alkaline Phosphatase 83 U/L (38-126); Anion Gap 12.1 mEq/L (5-15); Aspartate Amino Transferase 28 U/L (14-36); Bilirubin,Total 0.7 mg/dl (0.2-1.3); Blood Urea Nitrogen 11 mg/dl (7-17); Calcium 9.2 mg/dl (8.4-10.2); Carbon Dioxide 29 mmol/L (22.0-30.0); Estimated Glomerular Filt Rate 90 ml/min (>60); GFR (African American) 109 ML/MIN (>60); Globulin 2.8 g/dL (1.3-3.2); Glucose 97 mg/dl (74-100); Total Protein,Serum 7.5 g/dl (6.3-8.2)
[2023-10-21 14:54] LABS: Magnesium 2.1 mg/dl (1.6-2.3)
[2023-10-21 14:59] LABS: C-Reactive Protein 7.9 mg/L (0-4)
[2023-10-21 15:19] LABS: Amphetamine/Metha Screen,Urine Negative ng/ml (<1000); Barbiturates Screen,Urine Negative ng/ml (<200); Benzodiazepines Screen,Urine Negative ng/ml (<200); Cannabinoid Screen,Urine Negative ng/ml (<50); Cocaine Screen,Urine Negative ng/ml (<300); Methadone Screen,Urine Negative ng/ml (<300); Opiate Screen,Urine Negative ng/ml (<300); Phencyclidine Screen,Urine Negative ng/ml (<25)
[2023-10-21 15:24] LABS: Thyroid Stimulating Hormone 0.92 uIU/mL (0.465-4.68)
[2023-10-21 15:28] LABS: Ferritin 76.4 ng/ml (6.24-137)
[2023-10-21 15:44] LABS: 25-OH Vitamin D, Total 46.4 ng/mL (30-100)
[2023-10-21 18:29] LABS: Vitamin B12 333 pg/mL (239-931)
== END 2023-10-21 23:59 ==
LOC: LAB.DROPOF 15:32
PROVIDERS: PCP Nurse Practitioner Family; Visit Provider Nurse Practitioner Family
DX: G51.4 Facial myokymia (principal); R00.2 Palpitations; R53.83 Other fatigue; E66.9 Obesity, unspecified; Z68.33 Body mass index [BMI] 33.0-33.9, adult
CPT/HCPCS: 80053; 80307; 82306; 82607; 82728; 83735; 84443; 85025; 86140

== ENCOUNTER 2023-11-11 12:37 | Outpatient (CLI) | payer OTHER, SELFPAY ==
[2023-11-11 13:20] LABS: C-Reactive Protein 14.3 mg/L (0-4)
[2023-11-11 14:05] LABS: Vitamin B12 868 pg/mL (239-931)
[2023-11-13 12:36] LABS: Antinuclear Antibodies (ANA) NEGATIVE
== END 2023-11-11 23:59 ==
LOC: LAB.DROPOF 12:38
PROVIDERS: PCP Nurse Practitioner Family; Visit Provider Nurse Practitioner Family
DX: R79.82 Elevated C-reactive protein (CRP) (principal); R79.89 Other specified abnormal findings of blood chemistry
CPT/HCPCS: 82607; 86038; 86140

== ENCOUNTER 2023-12-16 16:32 | Outpatient (CLI) | payer OTHER, SELFPAY ==
[2023-12-16 16:48] LABS: C-Reactive Protein 23.6 mg/L (0-4)
[2023-12-16 17:42] LABS: Vitamin B12 922 pg/mL (239-931)
== END 2023-12-16 23:59 ==
LOC: LAB.DROPOF 16:32
PROVIDERS: PCP Nurse Practitioner Family; Visit Provider Nurse Practitioner Family
DX: B96.89 Other specified bacterial agents as the cause of diseases classified elsewhere (principal); B96.29 Other Escherichia coli [E. coli] as the cause of diseases classified elsewhere; R35.0 Frequency of micturition; R39.15 Urgency of urination; R39.89 Other symptoms and signs involving the genitourinary system; R79.82 Elevated C-reactive protein (CRP); R79.89 Other specified abnormal findings of blood chemistry
CPT/HCPCS: 82607; 86140; 87086

== ENCOUNTER 2024-02-18 11:06 | Outpatient (CLI) | payer OTHER, SELFPAY ==
[2024-02-18 11:41] LABS: C-Reactive Protein 15.7 mg/L (0-4)
== END 2024-02-18 23:59 | disposition home or self-care (01) ==
LOC: LAB.DROPOF 11:06
PROVIDERS: PCP Nurse Practitioner Family; Visit Provider Nurse Practitioner Family
DX: R79.82 Elevated C-reactive protein (CRP) (principal)
CPT/HCPCS: 86140

== ENCOUNTER 2024-05-26 14:57 | Outpatient (CLI) | payer OTHER, SELFPAY ==
[2024-05-26 13:39] LABS: Magnesium 2.1 mg/dl (1.6-2.3)
[2024-05-26 13:46] LABS: C-Reactive Protein 10.1 mg/L (0-4)
[2024-05-26 14:34] LABS: Vitamin B12 > 1000 pg/mL (239-931)
== END 2024-05-26 23:59 | disposition home or self-care (01) ==
LOC: LAB.DROPOF 14:57
PROVIDERS: PCP Nurse Practitioner Family; Visit Provider Nurse Practitioner Family
DX: R79.82 Elevated C-reactive protein (CRP) (principal); R79.89 Other specified abnormal findings of blood chemistry; G51.4 Facial myokymia
CPT/HCPCS: 82607; 83735; 86140

== ENCOUNTER 2024-08-25 10:24 | Outpatient (CLI) | payer OTHER, SELFPAY ==
[2024-08-25 14:50] LABS: C-Reactive Protein 9.7 mg/L (0-4)
[2024-08-25 15:01] LABS: 25-OH Vitamin D, Total 65.6 ng/mL (30-100)
[2024-08-25 15:38] LABS: Vitamin B12 > 1000 pg/mL (239-931)
[2024-08-26 12:34] LABS: Estradiol 11.1 pg/mL (.); FSH 94.7 mIU/mL (.); LH 64.5 mIU/mL (.); Progesterone 0.1 ng/mL (.)
== END 2024-08-25 23:59 | disposition home or self-care (01) ==
LOC: LAB.DROPOF 08-26 09:27
PROVIDERS: PCP Nurse Practitioner Family; Visit Provider Nurse Practitioner Family
DX: R23.2 Flushing (principal); R79.89 Other specified abnormal findings of blood chemistry; R79.82 Elevated C-reactive protein (CRP); R53.83 Other fatigue
CPT/HCPCS: 82306; 82607; 82670; 83001; 83002; 84144; 86140

== ENCOUNTER 2024-12-01 16:16 | Outpatient (CLI) | payer OTHER, SELFPAY ==
[2024-12-01 13:57] LABS: C-Reactive Protein 7.3 mg/L (0-4)
[2024-12-01 15:35] LABS: Vitamin B12 > 1000 pg/mL (239-931)
== END 2024-12-01 23:59 | disposition home or self-care (01) ==
LOC: LAB.DROPOF 16:17
PROVIDERS: PCP Nurse Practitioner Family; Visit Provider Nurse Practitioner Family
DX: G47.00 Insomnia, unspecified (principal); R79.89 Other specified abnormal findings of blood chemistry; R79.82 Elevated C-reactive protein (CRP)
CPT/HCPCS: 82306; 82607; 86140

== ENCOUNTER 2025-04-05 10:30 | Outpatient (CLI) | payer OTHER, SELFPAY ==
[2025-04-05 18:47] LABS: Vitamin B12 > 1000 pg/mL (239-931)
== END 2025-04-05 23:59 | disposition home or self-care (01) ==
LOC: LAB.DROPOF 04-07 10:30
PROVIDERS: PCP Nurse Practitioner Family; Visit Provider Nurse Practitioner Family
DX: R79.89 Other specified abnormal findings of blood chemistry (principal); R23.2 Flushing; R79.82 Elevated C-reactive protein (CRP)
CPT/HCPCS: 82607; 84443; 86140